=== PATIENT | female | born 1960 | race Hispanic/Latino ===

== ENCOUNTER 2023-11-23 07:52 | Day surgery (SDC) | payer MEDICAID ==
[~2023-11-23] VITALS: Ht 157.5 cm; Wt 75.3 kg
[2023-11-23] VITALS (11 sets, daily range): BP systolic 101–145; BP diastolic 51–72; PULSE 46–65; RESP 12–18
[~2023-11-23 07:52] MED LIST: ACET-2079 PO; CETI10TA57 PO; MECL-302 PO; METF-444 PO; METO-391 PO; OLMESARTAN PO; OMEP40CA21 PO; PREVASTATIN PO; SUCR1TAB2 PO; TIRZ2.5P SQ
[2023-11-23] MEDS: 0.9%NACL 1000ML 1,000 ML IV ONE (09:17)
[2023-11-23] MEDS ORDERED: PROPOFOL 10 MG/ML 20ML VIAL IV ONE ×2 (10:02)
== END 2023-11-23 11:36 | disposition home or self-care (01) ==
LOC: ENDO 07:52 → DAH 07:52 → ENDO 11:36
PROVIDERS: ATTEND Internal Medicine Gastroenterology
DX: R10.10 Upper abdominal pain, unspecified (principal); K29.70 Gastritis, unspecified, without bleeding; B96.81 Helicobacter pylori [H. pylori] as the cause of diseases classified elsewhere; K31.89 Other diseases of stomach and duodenum; K21.9 Gastro-esophageal reflux disease without esophagitis; K57.30 Diverticulosis of large intestine without perforation or abscess without bleeding; K64.1 Second degree hemorrhoids; E11.9 Type 2 diabetes mellitus without complications; I10 Essential (primary) hypertension; E78.5 Hyperlipidemia, unspecified; K31.84 Gastroparesis; K44.9 Diaphragmatic hernia without obstruction or gangrene; K50.90 Crohn's disease, unspecified, without complications; M81.0 Age-related osteoporosis without current pathological fracture; M19.90 Unspecified osteoarthritis, unspecified site; Z85.038 Personal history of other malignant neoplasm of large intestine; Z88.8 Allergy status to other drugs, medicaments and biological substances; Z83.3 Family history of diabetes mellitus; Z82.49 Family history of ischemic heart disease and other diseases of the circulatory system; Z79.84 Long term (current) use of oral hypoglycemic drugs; Z79.899 Other long term (current) drug therapy; Z98.890 Other specified postprocedural states; Z98.51 Tubal ligation status
CPT/HCPCS: 43239; 82948 ×2; J7030; J3490 ×2; A4620; A4215 ×2; A4223; A4222; A4221; A4663; A4606; J2704